=== PATIENT | female | born 1975 | race Caucasian/White ===

== ENCOUNTER → 2021-12-14 14:44 | Outpatient (CLI) | payer OTHER, SELFPAY ==
--- NOTE | 2021-12-14 | DI.US.S_ITS ---
PROCEDURE: US PELVIC COMPLETE INDICATIONS: IUD LOCATION TECHNIQUE: Real-time scanning was performed of the pelvic organs, with image documentation. Additional endovaginal scanning was necessary due to incomplete visualization of the adnexal and endometrial structures by transabdominal scanning. COMPARISON: None. FINDINGS: Uterus: Uterus is anteverted and normal in size at 8.5 x 4.4 x 4.9 cm. The myometrium is homogeneous. The endometrium measures 2.9 mm combined thickness. Intrauterine device in expected position. Ovaries: Left ovary measures 2.6 x 2.7 x 1.9 cm. Regressing physiologic cyst associated with the right ovary measuring 1.2 cm. . Right ovary measures 3.6 x 2.3 x 2.1 cm Other: No pathologic free abdominal or pelvic fluid. IMPRESSION: Intrauterine device in expected position. We strive to produce accurate, complete, and clear reports of imaging services. To assist us in improving patient care, this report was composed using standard report templates and voice recognition software. Therefore, it may contain abnormal punctuation, insertions and/or omissions. Occasional wrong-word or sound-alike substitutions may occur. Though we review the report and make efforts to correct it, we do recommend that the report be read carefully in proper context to recognize any text inaccuracies. Dictated by: Uriah IQBAL Interpreted: Soha Machado MD on 12/14/2021 at 15:52 Transcribed by: COREY on 12/14/2021 at 15:54 Approved by: Soha Machado M.D. on 12/14/2021 at 16:41
== END ==
PROVIDERS: Referring Provider Family Medicine; Visit Provider Family Medicine
DX: Z30.431 Encounter for routine checking of intrauterine contraceptive device
CPT/HCPCS: 76856